=== PATIENT | female | born 1980 | race Caucasian/White ===

== ENCOUNTER 2024-06-24 14:30 | Outpatient (RCR) | payer OTHER, SELFPAY | END 2024-08-04 11:45 | disposition home or self-care (01) | PROVIDERS: PCP Family Medicine; Visit Provider Orthopaedic Surgery | DX: M17.12 Unilateral primary osteoarthritis, left knee (principal); Z51.89 Encounter for other specified aftercare | CPT/HCPCS: 97110; 97112; 97140; 97161 ==